=== PATIENT | female | born 1955 | race Caucasian/White ===

== ENCOUNTER 2017-06-24 04:27 | Emergency (ER) | payer OTHER ==
[2017-06-24] MEDS ORDERED: Acetaminophen 325 MG TAB ONE (05:29)
[2017-06-24] MEDS ORDERED: Lidocaine Viscous Sol 2% 15 ml UD Cup ONE (05:29)
[2017-06-24] MEDS ORDERED: Dexamethasone 4 MG TAB ONE (05:29)
[2017-06-24] MEDS ORDERED: Bicillin LA 1.2 MILLION UNITS/2 ML SYRINGE ONE (06:47)
== END 2017-06-24 07:25 | disposition home or self-care (01) ==
LOC: ERS 04:27
DX: J02.0 Streptococcal pharyngitis (principal); I10 Essential (primary) hypertension
CPT/HCPCS: 87430; 96372; J0561; J8540

== ENCOUNTER 2018-03-30 13:23 | Outpatient (CLI) | payer OTHER | END 2018-03-30 13:24 | disposition home or self-care (01) | LOC: BICMAMMO 13:23 | PROVIDERS: ATTEND Family Medicine | DX: Z12.31 Encounter for screening mammogram for malignant neoplasm of breast (principal); Z80.3 Family history of malignant neoplasm of breast | CPT/HCPCS: 77063; 77067 ==

== ENCOUNTER 2019-01-03 11:53 | Emergency (ER) | payer OTHER ==
[2019-01-03] MEDS ORDERED: Ondansetron ODT 4 MG TAB ONE (12:45)
[2019-01-03] MEDS ORDERED: Ketorolac Tromethamine 30 MG/ML VIAL ONE (12:45)
[2019-01-03] MEDS ORDERED: Bicillin LA 1.2 MILLION UNITS/2 ML SYRINGE IM SCH (13:30)
[2019-01-03] MEDS ORDERED: Bicillin LA 1.2 MILLION UNITS/2 ML SYRINGE ONE (13:46)
== END 2019-01-03 14:05 | disposition home or self-care (01) ==
LOC: ERS 11:53
DX: J02.0 Streptococcal pharyngitis (principal); F32.9 Major depressive disorder, single episode, unspecified; E78.5 Hyperlipidemia, unspecified; I10 Essential (primary) hypertension; Z79.899 Other long term (current) drug therapy
CPT/HCPCS: 87430; 87804; 96372; J0561; J1885; Q0162

== ENCOUNTER 2019-01-10 09:02 | Outpatient (CLI) | payer OTHER ==
--- NOTE | 2019-01-10 09:34 | RAD ---
THREE VIEWS RIGHT SHOULDER: HISTORY: Pain. COMPARISON: None. FINDINGS: Glenohumeral joint space is preserved. Acromioclavicular and coracoclavicular differences are mainta ined. Visualized ribs are unremarkable. Possible opacity in the right upper lobe, incompletely evaluated. Dedicated chest radiograph is katey mmended. IMPRESSION: 1. No evidence of fracture or dislocation. 2. Possible opacity in the right upper lobe. Dedicated chest radiograph is recommended. CODE T POS: [facility]
== END 2019-01-10 09:03 | disposition home or self-care (01) ==
LOC: RAD 09:02
PROVIDERS: ATTEND Nurse Practitioner Family
DX: M25.511 Pain in right shoulder (principal)

== ENCOUNTER 2019-01-11 08:15 | Outpatient (CLI) | payer OTHER ==
--- NOTE | 2019-01-11 08:53 | RAD ---
EXAM: Chest PA and lateral: HISTORY: Abnormal shoulder radiograph. Right upper lobe opacity. COMPARISON: None Correlation: Right shoulder radiograph 01/10/2019 FINDINGS: Heart: Upper normal cardiac silhouette. Aorta: Unremarkable Pulmonary vessels: Normal Costophrenic angles: Costophrenic angles are clear. Lungs: Adequate aeration of the left lung. Focal opacity in the right upper lobe. Correlate for infil trate. If there is no clinical evidence for pneumonia, consider CT. Pneumothorax: No pneumothorax Osseous structures: No osseous abnormalities IMPRESSION: 1. Right upper lobe opacity. Recommendations as above. CODE T Code lung nodule
== END 2019-01-11 08:16 | disposition home or self-care (01) ==
LOC: RAD 08:15
PROVIDERS: ATTEND Nurse Practitioner Family
DX: R93.89 Abnormal findings on diagnostic imaging of other specified body structures (principal)
CPT/HCPCS: 71046

== ENCOUNTER 2019-01-17 12:45 | Outpatient (CLI) | payer OTHER ==
--- NOTE | 2019-01-17 13:30 | CT ---
CT chest noncontrast HISTORY: Lung nodule. Abnormal chest radiograph. FINDINGS: Correlated with recent chest radiographs. Within the right upper lobe, a very mild predomin antly central patchy infiltrate is present, extending to the lateral aspect of the lower portion of the lobe. Based on the CT appearance and the associated topogram, it is less prominent than on recent chest radiograph. No focal mass is apparent. Minimal linear scarring at the lateral margin of the inferior segment of the lingula. Lack of contrast limits evaluation of the soft tissues. No bulky adenopathy is apparent. Degenerative changes thoracic spine. IMPRESSION: Right upper lobe infiltrate favored to be improved compared to most recent chest radiogra ph. No focal mass evident. Given that the infiltrate is visible on chest radiograph, please consider follow-up in 6-8 weeks to e valuate for continued resolution.
== END 2019-01-17 12:46 | disposition home or self-care (01) ==
LOC: BICCT 12:45
PROVIDERS: ATTEND Nurse Practitioner Family
DX: R91.1 Solitary pulmonary nodule (principal); R91.8 Other nonspecific abnormal finding of lung field
CPT/HCPCS: 71250

== ENCOUNTER 2019-05-16 15:24 | Outpatient (CLI) | payer OTHER ==
--- NOTE | 2019-05-16 15:50 | RAD ---
Chest 2 views HISTORY: Pneumonia. Follow-up. COMPARISON: 01/11/2019. FINDINGS: Cardiac silhouette is unremarkable. Pulmonary vasculature are within normal limits. Mediast inum is midline. Ill-defined parenchymal opacity in the right upper lobe on the previous exams is no longer evident. N o new areas of airspace consolidation. No pleural fluid or pneumothorax. IMPRESSION: Interval resolution right upper lobe infiltrate. No new abnormalities are demonstrated.
== END 2019-05-16 15:25 | disposition home or self-care (01) ==
LOC: BICRAD 15:24
PROVIDERS: ATTEND Family Medicine
DX: J18.9 Pneumonia, unspecified organism (principal); R91.8 Other nonspecific abnormal finding of lung field
CPT/HCPCS: 71046

== ENCOUNTER 2019-05-25 10:58 | Outpatient (CLI) | payer OTHER ==
--- NOTE | 2019-05-25 11:43 | MMO ---
Bilateral MAMMO Bilat Screen [facility]. CLINICAL HISTORY: Patient is 64 years old and is seen for screening. The patient has the following family history of breast cancer: mother, at age 40; sister, at age 50 and maternal grandmother, at age 90. The patient has no personal history of cancer. VIEWS: The views performed were: bilateral craniocaudal with tomosynthesis; bilateral mediolateral oblique with tomosynthesis; and left exaggerated craniocaudal. FILMS COMPARED: The present examination has been compared to prior imaging studies performed at [facility] on 03/30/2018, and at [facility] on 11/26/2015, 11/27/2015 and 12/01/2016. This study has been interpreted with the assistance of computer-aided detection. MAMMOGRAM FINDINGS: There are scattered fibroglandular densities. There are no suspicious masses, suspicious calcifications, or new areas of architectural distortion. IMPRESSION: THERE IS NO MAMMOGRAPHIC EVIDENCE OF MALIGNANCY. A ROUTINE FOLLOW-UP MAMMOGRAM IN 1 YEAR IS RECOMMENDED. THE RESULTS OF THIS EXAM WERE SENT TO THE PATIENT. ACR BI-RADS Category 1 - Negative MAMMOGRAPHY NOTE: 1. A negative mammogram report should not delay a biopsy if a dominant of clinically suspicious mass is present. 2. Approximately 10% to 15% of breast cancers are not detected by mammography. 3. Adenosis and dense breasts may obscure an underlying neoplasm. Reported by: YANDEL MOLINA MD Electonically Signed: [id number]
== END 2019-05-25 10:59 | disposition home or self-care (01) ==
LOC: BICMAMMO 10:58
PROVIDERS: ATTEND Family Medicine
DX: Z12.31 Encounter for screening mammogram for malignant neoplasm of breast (principal); Z80.3 Family history of malignant neoplasm of breast
CPT/HCPCS: 77063; 77067

== ENCOUNTER 2024-03-04 14:35 | Emergency (ER) | payer MEDICARE ==
[2024-03-04 15:53] LABS: Influenza A by NAA Not Detected (NotDetected); Influenza B by NAA Not Detected (NotDetected); SARS-CoV-2 NAA Rapid Test DETECTED (NotDetected)
== END 2024-03-04 16:14 | disposition home or self-care (01) ==
LOC: EEVIPCON 14:35 → ERS 14:35
DX: U07.1 COVID-19 (principal); I10 Essential (primary) hypertension
CPT/HCPCS: 0240U; 71045; 99283

== ENCOUNTER 2025-07-14 02:37 | Emergency (ER) | payer MEDICARE | END 2025-07-14 05:02 | disposition home or self-care (01) | LOC: ERS 02:37 | DX: S40.021A Contusion of right upper arm, initial encounter (principal); R07.89 Other chest pain; I10 Essential (primary) hypertension; W01.0XXA Fall on same level from slipping, tripping and stumbling without subsequent striking against object, initial encounter; Z79.899 Other long term (current) drug therapy | CPT/HCPCS: 71045; 96372 ==